=== PATIENT | male | born 1955 | race Caucasian/White ===

== ENCOUNTER 2024-06-15 13:53 | Emergency (ER) | payer MEDICAID ==
[~2024-06-15] VITALS: Ht 175.3 cm; Wt 177.3 kg
[~2024-06-15 13:53] MED LIST: ASPIRIN 32325 MG/TAB PO; NARDIL PO
[2024-06-15 13:56] VITALS: TEMP 98.3
[2024-06-15] MEDS ORDERED: LORazepam 2 MG/ML 1 ML VIAL IV ONE (15:00)
[2024-06-15 15:22] LABS: BASO % 0.4 % (0.0-2.0); EOS # 0.5 K/mm3 (0.0-0.7); EOS % 4.7 % (0.0-4.0); GRAN # 4.5 K/mm3 (1.4-6.5); GRAN % 42.2 % (42.2-75.2); HEMATOCRIT 42.2 % (42.0-52.0); HEMOGLOBIN 14.4 g/dl (13.5-18.0); LYMPH # 4.5 K/mm3 (1.2-3.4); LYMPH % 41.8 % (20.0-51.0); MEAN CELL VOLUME 97 fl (80.0-100.0); MEAN CORPUSCULAR HEMOGLOBIN 33 pg (27-31); MEAN CORPUSCULAR HGB CONC 34 g/dl (33.0-37.0); MEAN PLATELET VOLUME 9.9 fl (7.4-10.4); MONO # 1.2 K/mm3 (0.1-0.6); MONO % 10.7 % (1.7-9.3); PLATELET COUNT 219 K/mm3 (130-400); RED BLOOD COUNT 4.35 M/mm3 (4.20-5.60); REDCELL DISTRIBUTION WIDTH-CV 13.3 % (11.5-14.5)
[2024-06-15 15:39] LABS: ALBUMIN 3.4 g/dL (3.4-4.8); BILIRUBIN,TOTAL 0.5 mg/dL (0.2-1.2); CALCIUM 9.6 mg/dL (8.4-10.2); CREATININE, serum 1.05 mg/dL (0.72-1.25); POTASSIUM 3.8 mEq/L (3.5-4.5); TOTAL PROTEIN 7.4 g/dl (6.2-8.1)
[2024-06-15 15:44] LABS: TROPONIN-I 0.01 ng/mL (0.00-0.033)
[2024-06-15 16:27] VITALS: BP 127/45; PULSE 66
== END 2024-06-15 16:51 | disposition home or self-care (01) ==
LOC: COL.ER 13:53
PROVIDERS: Family Medicine
DX: R25.1 Tremor, unspecified (principal)
CPT/HCPCS: J2060